=== PATIENT | male | born 1960 | race Caucasian/White ===

== ENCOUNTER 2024-01-27 08:35 | Outpatient (CLI) | payer BC, SELFPAY ==
--- OUTSIDE RECORDS SUMMARY | 2024-01-29 05:56 | XMS_ITS | Clinical Summary ---
Author Organization [employer] [facility] [employer] Address [place], [place] [address] Care Team Providers Care Consumer Attorney Name Role Phone Tanvir Lubin MD Primary Care Provider [phone] Allergies No known active allergies Medications Medication Sig Dispensed Refills Start Date End Date Status albuterol HFA (PRO-AIR; VENTOLIN; PROVENTIL) 90 mcg/actuation inhalerIndications:Vi ral bronchitis Inhale 1-2 Puffs by mouth every 4 hours if needed for Wheezing (cough). 1 Each 09/03/2022 Active ketoconazole 2% topical (NIZORAL) cream Apply to face twice a day as needed 11/18/2021 Active Active Problems Problem Noted Date Diagnosed Date No Significant Past Medical History 09/11/2022 Immunizations Name Administration Dates Next Due COVID-19 vaccine (ProtectWise NTech 30mcg/0.3mL) 12YO+ ERROL-SUCROSE PF, MDV 02/15/2022 Influenza RIV4 (Age 18+ Years) PRESERV FREE 03/29,04/19/2021,04/11/2020 Influenza Virus, Unspecified 05/05/2016 Influenza, IIV3 (Age >=3 years) 05/27/2001 Influenza, IIV4 04/27/2023,04/15/2018 Influenza, IIV4 (=>6mos) MDV 06/24/2017 Td (Age >=7 Years) 02/16/1996 Tdap 01/30/2013 Tdap, Unspecified 03/27/2015 Zoster (Shingrix-RZV, recombinant) 05/12/2022, Family History Medical History Relation Name Comments Good Health Daughter Cancer-colon Father Other Mother eye issue Good Health Sister 1 Good Health Sister 2 Good Health Son Relation Name Status Comments Daughter Alive Father (Age 62) colon canc er Mother Alive Sister 1 Alive Sister 2 Alive Son Alive Social History Tobacco Use Types Packs/Day Years Used Date Smoking Tobacco: Never Smokeless Tobacco: Never Tobacco Cessation:Counseling Given: Not Answered Alcohol Use Standard Drinks/Week Comments Not Currently 0 (1 standard drink = 0.6 oz pur e alcohol) 3-4 weekly PHQ-2 Answer Date Recorded PHQ-2 TOTAL SCORE 2 11/14/2022 Social Connections Answer Date Recorded Frequency of Communication with Friends and Fami ly Not on file 09/18/2023 Financial Resource Strain Answer Date R ecorded Difficulty of Paying Living Expenses 3 09/11/2022 Difficulty of Paying Living Expenses Not on file 09/11/2022 Food Insecurity Answer Date Recorded Worried About Running Out of Food in the Last Ye ar 1 09/11/2022 Transportation Needs Answer Date Record ed Lack of Transportation (Medical) 1 09/11/2022 Housing Stability Answer Date Recorded Unable to Pay for Housing in the Last Year 1 09/11/2022 Sex and Gender Information Value Date Recorded Sex Assigned at Not on file Gender Identity Not on file Sexual Orientation Not on file Obstetrics History Last Filed Vital Signs Vital Sign Reading Time Taken Comments Blood Pressure 117/78 11/14/2022 4:04 PM CDT Pulse 62 11/14/2022 4:04 PM CDT Temperature 36.7 ??C (98.1 ??F) 09/03/2022 2:13 PM CS T Respiratory Rate 16 09/03/2022 2:13 PM PAINT PREPARER Oxygen Saturation 97% 09/11/2022 12:58 PM PAINT PREPARER Inhaled Oxygen Concentration - - Weight 93.2 kg (205 lb 8 oz) 11/14/2022 4:04 PM CDT Height 177.8 cm (5' 10) 09/11/2022 12:58 PM PAINT PREPARER Body Mass Index 29.49 09/11/2022 12:58 PM PAINT PREPARER Plan of Treatment Health Maintenance Due Date Last Done Comments HIV for age 15-65 1976 Colonoscopy through age 75 2006 Lipids for age 45-75 2006 COVID-19 vaccine series (2022- season) 2023 06/13/2022, 02/15/2022, 05/23/2021, Additional history exists BMI (ht and wt on same day) for age 18+ 09/11/2023 09/11/2022, 01/06/2018 Depression screening for age 12+ 11/15/2023 11/14/2022, 09/11/2022, 06/19/2021, Additional history exists Influenza for age 50-64 03/27/2024 04/27/20, 04/25/2022, 04/19/2021, Additional history exists Tetanus booster 03/27/2025 03/27/2015, 0701/2013, 02/16/1996 Tdap Completed 03/27/2015, 01/30/2013 Hepatitis C screening for age 18-79 Completed 01/06/2018 Zoster (shingles) series for age 50+ Completed 05/12/2022, 03/11/2022 Pneumococcal series for age 6-64 Aged Out No longer eligible based on patient's age to complete this topic Procedures Procedure Name Priority Date/Time Associated Diagnosis Comments ANTI HCV Routine 01/06/2018 2:04 PM CDT Need for hepatitis C screening test from Last 3 Months or Most Recently Relevant to Health Maintenance Results * ANTI HCV [59533.2] (01/06/2018 2:04 PM CDT) HEPATITIS C ANTIBODY Non-React jeff Non-React jeff 01/06/2018 10:01 PM CDT [facility] Comment:Antibodies to HCV no t detected; does not exclude the possibility of exposure to HCV. Blood BLOOD SPECIMEN / Unknown Venipuncture / Unknown 01/06/2018 2:04 PM CDT 01/06/2018 2:04 PM CDT Jefferson Hull NP SEND OUTS [facility] [address] [place] [address], [place] from Last 3 Months or Most Recently Relevant to Health Maintenance Care Teams Consumer Attorney Relationship Specialty Start Date End Date Tanvir Lubin MD [address] [place] [address] PCP - General Family Practice 11/14/22
--- OUTSIDE RECORDS SUMMARY | 2024-01-29 05:56 | XMS_ITS | Patient Health Record ---
Author Organization [facility] Address [address] [place] [address] Care Team Providers Care Truck Caterer Name Role Phone Tanvir Lubin Primary Care Provider [phone] Allergies No Known Allergies Reason For Referral Reason BPH with urinary ret ention, Subramanian catheter in place Diagnosis 1 Benign prostatic hyp erplasia with lower urinary tract symptoms (N40.1) Referral Organization [facility] [place] Referring Provider First Name Tanvir Referring Provider Last Name Amee Referring Provider Speciality Internal M edicine Referred Organization [facility] [place] Referred Provider Provider, Provider Referred Address [address] [place],[address], General Notes Tanvir Lubin 12/25 04:02:05 PM >[facility] 01/08/2024 07:53:59 AM >faxed with attachments Referral Priority Routine Medications Medication SIG (Take, Route, Fr equency, Duration) Notes Start Date End Date Status Tamsulosin HCl 0.4 MG 2 capsules Orally Once a day 05/14/2023 Active Immunizations Vaccine Route Administration Date Status Comme nts Tdap (Boostrix), 10+yrs IM Intramuscular 03/27/2015 Administered Shingles/Recombinant Zoster, 50+yrs (Shingrix) IM Intramuscular 03/11/2022 Administered Per verbal order Dr. Lubin. Shingles/Recombinant Zoster, 50+yrs (Shingrix) IM Intramuscular 05/12/2022 Administered Per [facility] Historic - Flu 6+months Quadrivalent Unknown 05/05/2016 Administered [facility] [place] Flulaval : 6+ mon 0.5 mL MDV, Quad IM Intramuscular 06/24/2017 Administered Problems Problem Type SNOMED Code ICD Code Onset Dates Problem Status W/U Status Risk Notes Problem 004152230 History of adenomatous polyp of colon (Z86.010) Active confirmed Problem 075205045 Mild intermitten t asthma (J45.20) Active confirmed Problem 413446097 Environmental allergies (Z91.09) Active confirmed Problem 221110789 Bruxism (F45.8) Active confirmed Problem 475780241 Hyperlipidemia, mixed (E78.2) Active confirmed Problem 620988289 Allergy to dog dander (J30.81) Active confirmed Problem 331079490 Benign prostatic hyperplasia with lower urinary tract symptoms, unspecified morphology (N40.1) Active confirmed Problem 017215413 Benign prostatic hyperplasia with lower urinary tract symptoms (N40.1) Active confirmed Vital Signs Heart Rate 67 /min 01/07/2024 Temperature 97.6 degrees Fahrenheit 01/07/2024 Oximetry 97 % 01/07/2024 Blood pressure diastolic 74 mm Hg 01/07/2024 Height 6 ft 9.5 in in 01/07/2024 Blood pressure systolic 118 mm Hg 01/07/2024 Weight 212.4 lbs 01/07/2024 BMI 22.48 kg/m2 01/07/2024 Encounters Encounter Location Date Provider Diagnosis [address] [address] 01/10/2024 [facility] [address] [place] [address] 01/11/[address] [address] 01/12/2024 Tanvir [facility] [address] [place] [address] 05/13/2023 Tanvir [facility] [address] [place] [address] 05/14/[address] [address] 01/07/2024 Tanvir Lubin Benign prostatic hyperplasia with lower urinary tract symptoms N40.1 and Urinary retention R33.9 Assessments Encounter Date Diagnosis (ICD Code) Assessment Notes Treat ment Notes Treatment Clinical Notes 01/07/2024 Urinary retention (ICD-10 - R33.9) 01/07/2024 Benign prostatic hyperplasia with lower urinary tract symptoms (ICD-10 - N40.1) Plan Of Treatment No Information Insurance Providers Payer Name Payer Address Payer Phone Subscriber Number Group Number Insured Name Patient Relationship to Insured Coverage Start Date Coverage End Date BCBS Out of State Plans [address] [address] [place] [address] [id number] Cedric Dao Self - patient is the insured 2 Medical (General) History Medical History History ICD Code Asthma/allergies (dog dander) Adenomatous colonic polyps Benign prostatic hypertrophy Hyperlipidemia Surgical History Surgery Date(Month/Year) right knee surgery (patellar) 1974
== END 2024-01-27 08:36 | disposition home or self-care (01) ==
LOC: NFLDREF 01-29 05:54
PROVIDERS: PCP Family Medicine; Referring Provider Family Medicine; Visit Provider Family Medicine
DX: Z00.00 Encounter for general adult medical examination without abnormal findings (principal); E78.5 Hyperlipidemia, unspecified; E66.9 Obesity, unspecified; N40.0 Benign prostatic hyperplasia without lower urinary tract symptoms
CPT/HCPCS: 80053; 80061; G0103

== ENCOUNTER 2024-02-22 13:46 | Outpatient (CLI) | payer BC, SELFPAY ==
--- OUTSIDE RECORDS SUMMARY | 2024-02-22 13:48 | XMS_ITS | Clinical Summary ---
Author Organization [employer] [facility] [email or web address] Address [place], [place] [address] Care Team Providers Care Orthopedic Physical Therapist Name Role Phone Tanvir Lubin MD Primary Care Provider [phone] Allergies No known active allergies Medications Medication [...] Name Administration Dates Next Due COVID-19 vaccine (Treatsie NTech 30mcg/0.3mL) 12YO+ ERROL-SUCROSE PF, MDV 02/15/2022 [...] T Respiratory Rate 16 09/03/2022 2:13 PM GLASS PULVERIZER EQUIPMENT OPERATOR Oxygen Saturation 97% 09/11/2022 12:58 PM GLASS PULVERIZER EQUIPMENT OPERATOR Inhaled Oxygen Concentration - - Weight 93.2 kg (205 lb 8 oz) 11/14/2022 4:04 PM CDT Height 177.8 cm (5' 10) 09/11/2022 12:58 PM GLASS PULVERIZER EQUIPMENT OPERATOR Body Mass Index 29.49 09/11/2022 12:58 PM GLASS PULVERIZER EQUIPMENT OPERATOR Plan of Treatment Upcoming Encounters Date Type Department Care Team (Late st Contact Info) Description 02/22/2024 2:00 PM CDT Ancillary Procedure [facility] [address] [place] [address] Health Maintenance Due Date Last Done Comments [...] Additional history exists Tetanus booster 03/27/2025 03/27/2015, 01/2013, 02/16/1996 Tdap Completed 03/27/2015, 01/30/2013 Hepatitis C [...] to Health Maintenance Results * ANTI HCV [35794.2] (01/06/2018 2:04 PM CDT) HEPATITIS C ANTIBODY Non-React jeff Non-React jeff 01/06/2018 10:01 PM CDT [facility] Comment:Antibodies to HCV no t detected; does not exclude the possibility of exposure to HCV. Blood BLOOD SPECIMEN / Unknown Venipuncture / Unknown 01/06/2018 2:04 PM CDT 01/06/2018 2:04 PM CDT Jefferson Hull NP SEND OUTS [facility] [address] [place] [address], from Last 3 Months or Most Recently Relevant to Health Maintenance Care Teams Orthopedic Physical Therapist Relationship Specialty Start Date End Date Tanvir Lubin MD [address] [place] [address] PCP - General Family Practice 11/14/22
--- OUTSIDE RECORDS SUMMARY | 2024-02-22 13:49 | XMS_ITS ---
Author Organization [facility] Address [address] [place] [address] [place] [address] Care Team Providers Care Canvas Shop Laborer Name Role Phone Tanvir Lubin Primary Care Provider REASON FOR VISIT positive covid, FYI Medications Medication SIG (Take, Route, Fr equency, Duration) Notes Start Date End Date Status Molnupiravir 200 MG 4 capsules Orally ev elaina 12 hrs for 5 days 01/10/2024 01/15/2024 Active Encounters Encounter Location Date Provider Diagnosis [address] [address] 01/10/2024 Tanvir Lubin Plan Of Treatment Medication Medication Name Sig Start Date Stop Date Notes Molnupiravir 200 MG 4 capsules Orally ev elaina 12 hrs for 5 days 01/10/2024 01/15/2024 Progress Notes * Cedric CAMPOS EDOB:1960 (63 yo M)Acc No.[id number]:01/10/2024 Patient:?Cedric CAMPOS :1960???Age:63 Y???Sex:Male Address:[address], [place], [address] * Refills? Start Molnupiravir Capsule, 200 MG, Orally, 40, 4 capsules, every 12 hrs, 5 days * true * Date:? Generated for Printi ng/Faxing/eTransmitting on:?02/22/2024 01:48 PM CDT
--- OUTSIDE RECORDS SUMMARY | 2024-02-22 13:49 | XMS_ITS ---
Author Organization [facility] Address [address] [place] [address] Care Team Providers Care Architecture Drafter Name Role Phone Tanvir Lubin Primary Care Provider REASON FOR VISIT Order request Encounters Encounter Location Date Provider [facility] [place] [address] [place] [address] 01/11/2024 Tanvir Lubin Plan Of Treatment No Information Progress Notes * Cedric CAMPOS EDOB:1960 (63 yo M)Acc No.[id number]:01/11/2024 Patient:?Cedric CAMPOS :1960???Age:63 Y???Sex:Male Address:[address], [place], [address] * true * Date:? Generated for Printi ng/Fakristelg/eTransmitting on:?02/22/2024 01:48 PM CDT
--- OUTSIDE RECORDS SUMMARY | 2024-02-22 13:49 | XMS_ITS ---
Author Organization [facility] Address [address] [place] [address] Care Team Providers Care Die Polisher Name Role Phone Tanvir Lubin Primary Care Provider [phone] REASON FOR VISIT Urine is coffee colored with a pinkish tinge to it Encounters Encounter Location Date Provider Diagnosis [facility] [place] [address] [place] [address] 01/12/2024 Tanvir Lubin Plan Of Treatment No Information Progress Notes * Cedric CAMPOS EDOB:1960 (63 yo M)Acc No.[id number]:01/12/2024 Patient:?Cedric CAMPOS :1960???Age:63 Y???Sex:Male Address:[address], [place], [address] * true * Date:? Generated for Printi ng/Faxing/eTransmitting on:?02/22/2024 01:48 PM CDT
--- OUTSIDE RECORDS SUMMARY | 2024-02-22 13:49 | XMS_ITS | Patient Health Record ---
Author Organization [employer] [facility] Address [address] [place] [address] Care Team Providers Care Independent Producer Name Role Phone Tanvir Lubin Primary Care Provider Allergies No Known Allergies Reason For Referral Reason BPH with urinary ret ention, Subramanian catheter in place Diagnosis 1 Benign prostatic hyp erplasia with lower urinary tract symptoms (N40.1) Referral Organization [facility] [place] Referring Provider First Name Tanvir Referring Provider Last Name Amee Referring Provider Speciality Internal M edicine Referred Organization [facility] [place] Referred Provider Provider, Provider Referred Address [address] [place],[address], General Notes Tanvir Lubin 12/25 04:02:05 PM >[place] [facility] 01/08/2024 07:53:59 AM >faxed with attachments Referral Priority Routine Medications Medication SIG (Take, Route, Fr equency, Duration) Notes Start Date End Date Status Tamsulosin HCl 0.4 MG 2 capsules Orally Once a day 05/14/2023 Active Immunizations Vaccine Route Administration Date Status Comme nts Flulaval : 6+ mon 0.5 mL MDV, Quad IM Intramuscular 06/24/2017 Administered Historic - Flu 6+months Quadrivalent Unknown 05/05/2016 Administered [facility] [place] Shingles/Recombinant Zoster, 50+yrs (Shingrix) IM Intramuscular 03/11/2022 Administered Per verbal order Dr. Lubin. Shingles/Recombinant Zoster, 50+yrs (Shingrix) IM Intramuscular 05/12/2022 Administered Per [facility] Tdap (Boostrix), 10+yrs IM Intramuscular 03/27/2015 Administered Problems Problem Type SNOMED Code ICD Code Onset Dates Problem Status W/U Status Risk Notes Problem 883373672 History of adenomatous polyp of colon (Z86.010) Active confirmed Problem 732019021 Mild intermitten t asthma (J45.20) Active confirmed Problem 942553796 Environmental allergies (Z91.09) Active confirmed Problem 247398671 Bruxism (F45.8) Active confirmed Problem 895523004 Hyperlipidemia, mixed (E78.2) Active confirmed Problem 191139377 Allergy to dog dander (J30.81) Active confirmed Problem 783879403 Benign prostatic hyperplasia with lower urinary tract symptoms, unspecified morphology (N40.1) Active confirmed Problem 947125343 Benign prostatic hyperplasia with lower urinary tract symptoms (N40.1) Active confirmed Vital Signs Heart Rate 67 /min 01/07/2024 Temperature 97.6 degrees Fahrenheit 01/07/2024 Oximetry 97 % 01/07/2024 Blood pressure diastolic 74 mm Hg 01/07/2024 Height 6 ft 9.5 in in 01/07/2024 Blood pressure systolic 118 mm Hg 01/07/2024 Weight 212.4 lbs 01/07/2024 BMI 22.48 kg/m2 01/07/2024 Encounters Encounter Location Date Provider Diagnosis [address] [address] 01/10/2024 [facility] [address] [place] [address] 01/11/[address] [address] 01/12/2024 Tanvir [facility] [address] [place] [address] 05/13/2023 Tanvir [facility] [address] [place] [address] 05/14/[address] [address] 01/07/2024 Tanvir Lubin Benign prostatic hyperplasia with [...] BCBS Out of State Plans [address] [address] [place] [address] [id number] Cedric Dao Self - patient is the insured 2 Medical (General) History Medical History History ICD Code Asthma/allergies (dog dander) Adenomatous colonic polyps Benign prostatic hypertrophy Hyperlipidemia Surgical History Surgery Date(Month/Year) right knee surgery (patellar) 1974
== END 2024-02-22 13:47 | disposition home or self-care (01) ==
PROVIDERS: PCP Family Medicine; Visit Provider Family Medicine
DX: Z82.49 Family history of ischemic heart disease and other diseases of the circulatory system (principal); I35.1 Nonrheumatic aortic (valve) insufficiency; I34.0 Nonrheumatic mitral (valve) insufficiency
CPT/HCPCS: 93306

== ENCOUNTER 2025-02-17 08:30 | Outpatient (CLI) | payer BC, SELFPAY | END 2025-02-17 08:31 | disposition home or self-care (01) | LOC: NFLDREF 02-18 19:04 | PROVIDERS: PCP Family Medicine; Referring Provider Family Medicine; Visit Provider Family Medicine | DX: E78.5 Hyperlipidemia, unspecified (principal); N40.0 Benign prostatic hyperplasia without lower urinary tract symptoms; N62 Hypertrophy of breast; Z12.5 Encounter for screening for malignant neoplasm of prostate | CPT/HCPCS: 80053; 80061; 82670; 83002; 84270; 84402; 84403; 84702; G0103 ==